=== PATIENT | female | born 1980 | race Caucasian/White ===

== ENCOUNTER 2021-03-15 08:27 | Emergency (ER) | payer OTHER ==
[2021-03-15 08:41] VITALS: BP 108/71; PULSE 72; TEMP 98.2; BMI 24.5
== END 2021-03-15 12:00 | disposition left against medical advice (07) ==
LOC: JER 08:27
DX: N92.0 Excessive and frequent menstruation with regular cycle (principal)
CPT/HCPCS: 84703; 99283-25